=== PATIENT | female | born 1975 ===

== ENCOUNTER 2016-11-03 12:24 | Emergency (ER) | payer MEDICAID ==
[2016-11-03 12:35] VITALS: TEMP 98.4
[2016-11-03 12:36] VITALS: BMI 24.7
[2016-11-03 13:08] VITALS: RESP 18
[2016-11-03] MEDS ORDERED: Albuterol 0.083% Inhal Sol (2.5 mg/3 mL) UD INH STA (13:08)
[2016-11-03] MEDS ORDERED: Albuterol 0.083% Inhal Sol (2.5 mg/3 mL) UD ONE (13:10)
[2016-11-03 13:39] LABS: HEMATOCRIT 36.3 % (34.0-47.0); MEAN CELL VOLUME 89.2 fl (81.0-99.0); MEAN CORPUSCULAR HEMOGLOBIN 29.4 pg (27.0-31.0); RED CELL DISTRIBUTION WIDTH 13.2 % (11.5-14.5); WHITE BLOOD COUNT 12.6 K/uL (4.8-10.8)
[2016-11-03 13:54] LABS: ALB/GLOB RATIO 1.4 (1.0-2.1); ALKALINE PHOSPHATASE 64 U/L (38-126); ALT/SGPT 30 U/L (9-52); AST/SGOT 29 U/L (14-36); BILIRUBIN,TOTAL 0.3 mg/dl (0.2-1.3); BLOOD UREA NITROGEN 15 mg/dl (7-17); CALCIUM 9.3 mg/dL (8.4-10.2); CARBON DIOXIDE 22 mmol/L (22-30); CHLORIDE 107 mmol/L (98-107); GFR AFRICAN-AMERICAN > 60; GLUCOSE,RANDOM 91 mg/dL (65-105); POTASSIUM 4.9 MMOL/L (3.6-5.0); SODIUM 140 mmol/l (132-148); TOTAL PROTEIN 7.5 G/DL (6.3-8.2)
--- NOTE | 2016-11-03 15:05 | RAD ---
HISTORY: chest pain COMPARISON: No prior. TECHNIQUE: Chest PA and lateral FINDINGS: LUNGS: No active pulmonary disease. PLEURA: No significant pleural effusion identified. No pneumothorax apparent. CARDIOVASCULAR: Normal. OSSEOUS STRUCTURES: No significant abnormalities. VISUALIZED UPPER ABDOMEN: Normal. OTHER FINDINGS: None. IMPRESSION: No active disease.
--- NOTE | 2016-11-03 16:26 | ED PDOC ---
HPI: CCC, URI, Sore Throat Time Seen by Provider: 11/03/16 12:49 Chief Complaint (Nursing): Shortness Of Breath Chief Complaint (Provider): cough, sob History Per: Patient History/Exam Limitations: no limitations Onset/Duration Of Symptoms: Hrs Current Symptoms Are (Timing): Still Present Sick Contacts (Context): None Associated Symptoms: Cough. denies: Fever, Chills, Sore Throat, Sputum, Neck Pain, Sinus Drainage, Myalgias, Nasal Congestion, Nausea, Vomiting, Diarrhea Ear Symptoms: Bilateral: None Additional Complaint(s): Pt reports SOB for 3 days. States she is not sure if she has asthma but has been given albuterol inhalers in the past, last time she felt similar. Pt state she was given advair by her PMD to take twice a day. Pt also reports history of smoking Past Medical History Reviewed: Historical Data, Nursing Documentation, Vital Signs Vital Signs: Last Vital Signs Temp 98.4 F 11/03/16 12:34 Pulse 72 11/03/16 13:05 Resp 18 11/03/16 13:05 BP 127/70 11/03/16 12:34 Pulse Ox 100 11/03/16 16:26 - Medical History PMH: Bronchitis - Surgical History Surgical History: No Surg Hx - Family History Family History: States: No Known Family Hx - Living Arrangements Living Arrangements: With Family - Social History Current smoker - smoking cessation education provided: No Alcohol: None Drugs: Denies - Immunization History Hx Tetanus Toxoid Vaccination: No Hx Influenza Vaccination: No Hx Pneumococcal Vaccination: No - Home Medications Home Medications: Ambulatory Orders Medication Instructions Recorded Albuterol HFA [Ventolin HFA 90 1 puff IH BID PRN #1 unit 11/03/16 mcg/actuation (8 g)] - Allergies Allergies/Adverse Reactions: Allergies Allergy/AdvReac Type Severity Reaction Status Date / Time No Known Allergies Allergy Verified 11/03/16 12:51 Review of Systems ROS Statement: Except As Marked, All Systems Reviewed And Found Negative Respiratory: Positive for: Cough, Shortness of Breath Physical Exam - Reviewed Nursing Documentation Reviewed: Yes Vital Signs Reviewed: Yes - Physical Exam Appears: Positive for: Well, Non-toxic, No Acute Distress Head Exam: Positive for: ATRAUMATIC, NORMAL INSPECTION, NORMOCEPHALIC Skin: Positive for: Normal Color, Warm, DRY Eye Exam: Positive for: Normal appearance ENT: Positive for: Normal ENT Inspection Neck: Positive for: Normal, Painless ROM Cardiovascular/Chest: Positive for: Regular Rate, Rhythm Respiratory: Positive for: CNT, Normal Breath Sounds Gastrointestinal/Abdominal: Positive for: Normal Exam, Bowel Sounds, Soft Back: Positive for: Normal Inspection Extremity: Positive for: Normal ROM Neurologic/Psych: Positive for: Alert, Oriented - Laboratory Results Result Diagrams: 11/03/16 13:33 11/03/16 13:33 - ECG O2 Sat by Pulse Oximetry: 100 Disposition - Clinical Impression Clinical Impression: Reactive airway disease - Patient ED Disposition Is Patient to be Admitted: No Counseled Patient/Family Regarding: Diagnosis, Need For Followup, Rx Given - Disposition Referrals: [facility] [Outside] Disposition: Routine/Home Disposition Time: 16:30 Condition: GOOD Prescriptions: Albuterol HFA [Ventolin HFA 90 mcg/actuation (8 g)] 1 puff IH BID PRN #1 unit PRN Reason: Shortness Of Breath Instructions: Reactive Airways Disease (ED) Print Language: GUATEMALAN
[2016-11-03 16:47] VITALS: BP 118/69; PULSE 82; O2SAT 99
== END 2016-11-03 16:47 | disposition home or self-care (01) ==
LOC: H.ER 12:24
DX: J45.909 Unspecified asthma, uncomplicated (principal); R06.02 Shortness of breath; R07.9 Chest pain, unspecified

== ENCOUNTER 2016-11-07 18:21 | Emergency (ER) | payer MEDICAID ==
[2016-11-07 18:22] VITALS: BMI 24.7
[2016-11-07 18:34] VITALS: BP 156/88; PULSE 75; RESP 22; TEMP 98; O2SAT 98
[2016-11-07 19:48] LABS: BASO # 0.1 K/uL (0.0-0.2); BASO % 0.6 % (0.0-2.0); EOS # 0.4 K/uL (0.0-0.7); EOS % 4.2 % (0.0-4.0); HEMATOCRIT 35.5 % (34.0-47.0); LYMPH # 3.3 K/uL (1.0-4.3); LYMPH % 32.5 % (20.0-40.0); MEAN CELL VOLUME 88.6 fl (81.0-99.0); MEAN CORPUSCULAR HEMOGLOBIN 29.4 pg (27.0-31.0); MEAN CORPUSCULAR HGB CONC 33.2 g/dL (33.0-37.0); MEAN PLATELET VOLUME 7.5 fl (7.2-11.7); MONO # 0.5 K/uL (0.0-0.8); MONO % 4.7 % (0.0-10.0); NEUT # 5.9 K/uL (1.8-7.0); RED CELL DISTRIBUTION WIDTH 13.4 % (11.5-14.5); WHITE BLOOD COUNT 10.1 K/uL (4.8-10.8)
[2016-11-07] MEDS ORDERED: Sterile Water 10 ML IV ONE (19:49)
--- NOTE | 2016-11-07 19:53 | ED PDOC ---
HPI: Chest Pain Time Seen by Provider: 11/07/16 19:19 Chief Complaint (Nursing): Chest Pain Chief Complaint (Provider): Chest Pain History Per: Patient History/Exam Limitations: no limitations Onset/Duration Of Symptoms: Days (2x) Current Symptoms Are (Timing): Still Present Severity: Moderate Exacerbating Factors: Deep Breathing (center of her chest), Other (lying flat) Additional Complaint(s): 41 year old female seen in the ED 5x days ago for the same complaints, arrives to the ED with complaints of shortness of breath and chest pain that started yesterday, which she feels in the center of her chest and worsens with deep breathing and when lying flat. When she was seen in the ED last week, her blood work and chest XRay were negative and she was sent home with an albuterol pump. She reports taking ibuprofen and advil at home with no relief. She denies having any other medical complaints. PMD: Castillo Stinson MD Past Medical History Reviewed: Historical Data, Nursing Documentation, Vital Signs Vital Signs: Last Vital Signs Temp 98 F 11/07/16 18:31 Pulse 75 11/07/16 18:31 Resp 22 11/07/16 18:31 BP 156/88 H 11/07/16 18:31 Pulse Ox 98 11/07/16 19:58 - Medical History PMH: Bronchitis - Family History Family History: States: No Known Family Hx - Social History Alcohol: None Drugs: Denies - Immunization History Hx Tetanus Toxoid Vaccination: No Hx Influenza Vaccination: No Hx Pneumococcal Vaccination: No - Home Medications Home Medications: Ambulatory Orders Medication Instructions Recorded Albuterol HFA [Ventolin HFA 90 1 puff IH BID PRN #1 unit 11/03/16 mcg/actuation (8 g)] Cyclobenzaprine [Cyclobenzaprine 10 mg PO BID #15 tab 11/07/16 HCl] Famotidine [Pepcid] 20 mg PO BID #30 tab 11/07/16 - Allergies Allergies/Adverse Reactions: Allergies Allergy/AdvReac Type Severity Reaction Status Date / Time depriona Allergy RASH Uncoded 11/07/16 18:34 Review of Systems ROS Statement: Except As Marked, All Systems Reviewed And Found Negative ENT: Positive for: Nose Discharge Respiratory: Positive for: Shortness of Breath Physical Exam - Reviewed Nursing Documentation Reviewed: Yes Vital Signs Reviewed: Yes - Physical Exam Appears: Positive for: Well, Non-toxic, No Acute Distress Head Exam: Positive for: ATRAUMATIC, NORMOCEPHALIC Skin: Positive for: Normal Color, Warm, Dry Neck: Positive for: Normal, Painless ROM, Supple Cardiovascular/Chest: Positive for: Regular Rate, Rhythm, Chest Non Tender. Negative for: Edema, Murmur Respiratory: Positive for: Normal Breath Sounds. Negative for: Crackles, Rales , Wheezing, Respiratory Distress Extremity: Positive for: Normal ROM Neurologic/Psych: Positive for: Alert, Oriented (3x) - Laboratory Results Result Diagrams: 11/07/16 19:40 11/07/16 19:40 - ECG ECG Rhythm: Positive for: Normal QRS, Normal ST Segment. Negative for: ST/T Changes O2 Sat by Pulse Oximetry: 98 (RA) Pulse Ox Interpretation: Normal Medical Decision Making Medical Decision Makin:19 Initial impression: 41 year old female with nonspecific shortness of breath and chest pain. Rule out pulmonary embolism, possibly GERD. EKG and prior CXR not concerning for pericarditis. Initial plan: * CT angio chest PE protocol * EKG * B-type natriuretic peptide * BMP * troponin I * urine * CBC * flexeril 10mg PO * protonix inj 40mg IVP * reevaluation CT: IMPRESSION: No aneurysm, dissection or pulmonary embolus, no focal pneumonia 1030: Results explained to patient, told her to f/u w/ PMD. Will prescribe pepcid and flexeril. Return precautions given. Scribe Attestation: Documented by Martha Jose, acting as a scribe for Israel Joaquin MD. Provider Scribe Attestation: All medical record entries made by the Scribe were at my direction and personally dictated by me. I have reviewed the chart and agree that the record accurately reflects my personal performance of the history, physical exam, medical decision making, and the department course for this patient. I have also personally directed, reviewed, and agree with the discharge instructions and disposition. Disposition - Clinical Impression Clinical Impression: Chest pain - Patient ED Disposition Is Patient to be Admitted: No - Disposition Referrals: Castillo Stinson MD [Family Provider] - [facility] [Outside] Disposition: Routine/Home Disposition Time: 22:38 Condition: STABLE Prescriptions: Cyclobenzaprine [Cyclobenzaprine HCl] 10 mg PO BID #15 tab Famotidine [Pepcid] 20 mg PO BID #30 tab Instructions: Chest Pain (ED)
[2016-11-07 20:04] LABS: BLOOD UREA NITROGEN 18 mg/dl (7-17); CALCIUM 9.2 mg/dL (8.4-10.2); CARBON DIOXIDE 25 mmol/L (22-30); CHLORIDE 106 mmol/L (98-107); GFR AFRICAN-AMERICAN > 60; GLUCOSE,RANDOM 84 mg/dL (65-105); POTASSIUM 4.3 MMOL/L (3.6-5.0); SODIUM 142 mmol/l (132-148)
[2016-11-07] MEDS ORDERED: Sodium Chloride 0.9% 50 ML IV ONE (20:33)
[2016-11-07] MEDS ORDERED: Iodixanol 320 MG/ML 100 ML BOTTLE IV ONE (20:33)
--- NOTE | 2016-11-07 22:00 | CT ---
EXAM: CT Angiography Chest With Intravenous Contrast CLINICAL HISTORY: 41 years old, female; Signs and symptoms; Shortness of breath; Additional info: R/O pe. Sent phy. Doc. With request TECHNIQUE: Axial computed tomographic angiography images of the chest with intravenous contrast using pulmonary embolism protocol. This CT exam was performed using one or more of the following dose reduction techniques: automated exposure control, adjustment of the mA and/or kV according to patient size, and/or use of iterative reconstruction technique. MIP reconstructed images were created and reviewed. Coronal and sagittal reformatted images were created and reviewed. CONTRAST: 80 mL of [id number] administered intravenously. EXAM DATE/TIME: 11/07/2016 7:39 PM COMPARISON: There are no prior studies for comparison. FINDINGS: Heart, aorta and Pulmonary arteries: Heart size is normal. There is no pericardial effusion. There is minimal iatrogenic venous air in main pulmonary artery.There is no aneurysm or dissection. There are no pulmonary emboli. Lungs and pleural spaces: Trachea and main bronchi are patent. There is no focal consolidation. There is dependent atelectasis greatest at the lung bases. There is atelectasis/scarring greatest in the middle lobe. There are no effusions. Mediastinum: There is thymic tissue in the anterior mediastinum. There are no pathologically enlarged mediastinal or hilar nodes. Esophagus is unremarkable. Thyroid: Thyroid is only partially imaged. Bones/joints: There are degenerative changes in the osseus structures. Soft tissues: unremarkable Upper abdomen: There are no acute abnormalities in the visualized portion of the abdomen. IMPRESSION: No aneurysm, dissection or pulmonary embolus, no focal pneumonia
--- NOTE | 2016-11-08 08:13 | CARD ---
APPROVED REPORT EKG Measurement Heart [id number] <Conclusion> Normal sinus rhythm with sinus arrhythmia Normal ECG
== END 2016-11-07 20:30 | disposition home or self-care (01) ==
LOC: H.ER 18:21
DX: R07.9 Chest pain, unspecified (principal); R06.02 Shortness of breath